=== PATIENT | female | born 1965 | race Hispanic/Latino ===

== ENCOUNTER 2017-09-19 09:59 | Outpatient (CLI) | payer SELFPAY ==
--- NOTE | 2017-09-20 13:16 | MMO ---
BILATERAL SCREENING MAMMOGRAMS: COMPARISON: Prior exams were unable to be located; therefore, there are no comparison studies. FINDINGS: This study is interpreted with the assistance of computer aided detection. There are scattered fibroglandular densities. There are bilateral benign appearing calcifications. No evidence of mass or distortion. No suspicious calcification. Recommend one year followup. IMPRESSION: BI-RADS Category 2: Benign findings. POS: [facility]
== END 2017-09-19 10:00 | disposition home or self-care (01) ==
LOC: SCSMAMMO 09:59
PROVIDERS: ATTEND Nurse Practitioner Family
DX: Z12.31 Encounter for screening mammogram for malignant neoplasm of breast (principal)
CPT/HCPCS: 77067

== ENCOUNTER 2022-04-30 12:35 | Emergency (ER) | payer BC, SELFPAY ==
[2022-04-30] MEDS ORDERED: Proparacaine 0.5% Opth 15 ML BOT ONE (12:53)
[2022-04-30] MEDS ORDERED: Fluorescein Opthalmic Strip ONE (12:55)
== END 2022-04-30 13:39 | disposition home or self-care (01) ==
LOC: ERS 12:35
DX: H10.9 Unspecified conjunctivitis (principal)
CPT/HCPCS: 99283

== ENCOUNTER 2024-03-25 21:16 | Observation (INO) | payer BC ==
[2024-03-26 00:27] LABS: #Basophils 0.08 10x3/uL (0.0-0.2); %Eosinophils 3.3 % (0.0-10.0); %Lymphocytes 28.9 % (21.0-51.0); %Monocytes 9.9 % (0.0-10.0); %Neutrophils 56.7 % (42.0-75.0); Hematocrit 40.5 % (36.0-47.0); Hemoglobin 13.7 g/dL (12.0-16.0); Mean Corpuscular HGB CONC 33.8 g/dL (32.0-36.0); Mean Corpuscular Hemoglobin 30.6 pg (27.0-31.0); Mean Corpuscular Volume 90.4 fL (78.0-98.0); Mean Platelet Volume 10.5 fL (7.4-10.4); Platelet Count 292 10x3/uL (130-400); Red Blood Cell (RBC) Count 4.48 mill/uL (4.20-5.40)
[2024-03-26] MEDS ORDERED: Aspirin 325 mg Enteric Coated Tablet ONE (00:58)
[2024-03-26 01:01] LABS: ALT (SGPT) 16 U/L (8-55); AST (SGOT) 15 U/L (5-34); Alkaline Phosphatase 95 U/L (40-110); Anion Gap 10 mmol/L (10-20); BUN (Urea Nitrogen) 17 mg/dL (9.8-20.1); Bilirubin, Total 0.8 mg/dL (0.2-1.2); Calc. Creatinine Clearance 0 mL/min (70-130); Calcium 10.3 mg/dL (7.8-10.44); Carbon Dioxide 24 mmol/L (22-29); Chloride 112 mmol/L (98-107); Estimated GFR 81; Globulin 3.1 g/dL (2.4-3.5); Glucose 111 mg/dL (70-105); Lipase 32 U/L (8-78); Magnesium 2.2 mg/dL (1.6-2.6); Potassium 4.1 mmol/L (3.5-5.1); Protein, Total 7.1 g/dL (6.0-8.3); Sodium 142 mmol/L (136-145)
[2024-03-26 01:17] LABS: Troponin I Less than 0.010 ng/mL (< 0.028)
[2024-03-26 01:18] LABS: INR-International Normal Ratio 0.9; PTT 30.3 sec (22.9-36.1); Prothrombin Time 12.5 sec (12.0-14.7)
[2024-03-26] MEDS ORDERED: Ondansetron PF 4 MG/2 ML Vial IVP PRN (01:18)
[2024-03-26] MEDS ORDERED: Ondansetron ODT 4 MG TAB PO PRN (01:18)
[2024-03-26] MEDS ORDERED: Acetaminophen 325 MG TAB PO PRN (01:18)
[2024-03-26] MEDS ORDERED: Acetaminophen 650 MG Suppository PR PRN (01:18)
[2024-03-26 02:42] VITALS: BMI 34.0
[2024-03-26 04:52] LABS: #Basophils 0.06 10x3/uL (0.0-0.2); %Basophils 0.9 % (0.0-1.0); %Eosinophils 2.6 % (0.0-10.0); %Lymphocytes 27.5 % (21.0-51.0); %Monocytes 7.9 % (0.0-10.0); %Neutrophils 60.9 % (42.0-75.0); Hematocrit 40.3 % (36.0-47.0); Hemoglobin 13.6 g/dL (12.0-16.0); Mean Corpuscular HGB CONC 33.7 g/dL (32.0-36.0); Mean Corpuscular Hemoglobin 30.6 pg (27.0-31.0); Mean Corpuscular Volume 90.8 fL (78.0-98.0); Mean Platelet Volume 10.9 fL (7.4-10.4); Platelet Count 283 10x3/uL (130-400); RBC Distribution Width 12.2 % (11.5-14.5); Red Blood Cell (RBC) Count 4.44 mill/uL (4.20-5.40)
[2024-03-26 05:59] LABS: Anion Gap 12 mmol/L (10-20); BUN (Urea Nitrogen) 14 mg/dL (9.8-20.1); Calc. Creatinine Clearance 97 mL/min (70-130); Calcium 10.3 mg/dL (7.8-10.44); Carbon Dioxide 23 mmol/L (22-29); Cardiac Risk 3.3 (Less than 4.5); Chloride 110 mmol/L (98-107); Cholesterol 174 mg/dl (< 200 Desired); Estimated GFR 81; Glucose 108 mg/dL (70-105); HDL Cholesterol 52 mg/dL (>60 Neg Risk); LDL Cholesterol, Calculated 107 mg/dL; Potassium 3.9 mmol/L (3.5-5.1); Sodium 141 mmol/L (136-145); Triglycerides 75 mg/dL (Less than 150)
[2024-03-26] MEDS: Atorvastatin Calcium 40 MG TAB PO SCH ×2 (06:34→21:00)
[2024-03-26] MEDS: Aspirin 81 mg Enteric Coated Tablet PO SCH (10:16)
[2024-03-26] MEDS: Enoxaparin 40 MG (0.4 mL) SYRINGE SC SCH (10:16)
[2024-03-26] MEDS: FLU (Fluarix Triv) TS24-25(6MOS UP)/PF 45 MCG/0.5 ML Syringe IM ONE (10:18)
[2024-03-27 04:01] LABS: #Basophils 0.07 10x3/uL (0.0-0.2); %Basophils 1.2 % (0.0-1.0); %Eosinophils 4.4 % (0.0-10.0); %Lymphocytes 38.6 % (21.0-51.0); %Monocytes 9.9 % (0.0-10.0); %Neutrophils 45.7 % (42.0-75.0); Hematocrit 40.7 % (36.0-47.0); Hemoglobin 13.8 g/dL (12.0-16.0); Mean Corpuscular HGB CONC 33.9 g/dL (32.0-36.0); Mean Corpuscular Hemoglobin 31.1 pg (27.0-31.0); Mean Corpuscular Volume 91.7 fL (78.0-98.0); Mean Platelet Volume 10.6 fL (7.4-10.4); Platelet Count 268 10x3/uL (130-400); Red Blood Cell (RBC) Count 4.44 mill/uL (4.20-5.40)
[2024-03-27 04:54] LABS: Anion Gap 10 mmol/L (10-20); BUN (Urea Nitrogen) 18 mg/dL (9.8-20.1); Calc. Creatinine Clearance 97 mL/min (70-130); Calcium 10.4 mg/dL (7.8-10.44); Carbon Dioxide 22 mmol/L (22-29); Chloride 111 mmol/L (98-107); Estimated GFR 81; Glucose 104 mg/dL (70-105); Potassium 4.2 mmol/L (3.5-5.1); Sodium 139 mmol/L (136-145)
[2024-03-27 14:56] VITALS: BP 121/74; TEMP 98.1
== END 2024-03-27 14:50 | disposition home or self-care (01) ==
LOC: ERS 21:16 → 2SE 03-26 01:09
PROVIDERS: ADMIT Family Medicine; ATTEND Internal Medicine
DX: R42 Dizziness and giddiness (principal); I10 Essential (primary) hypertension; H11.32 Conjunctival hemorrhage, left eye; Z91.041 Radiographic dye allergy status; Z79.899 Other long term (current) drug therapy
CPT/HCPCS: 36415; 70450; 70551; 80048; 80053; 80061; 83690; 83735; 84484; 85025; 85610; 85730; 90656; 93005; 96372; G0378; J1650